=== PATIENT | female | born 1965 | race Hispanic/Latino ===

== ENCOUNTER 2019-08-01 11:36 | Inpatient (IN) | payer OTHER ==
[~2019-08-01] VITALS: Ht 154.9 cm; Wt 95.3 kg
--- OUTSIDE RECORDS SUMMARY | 2019-08-01 11:40 | XMS REPORT ---
Author Author [facility] Address Unknown Phone Unavailable Care Team Providers Care Religious Assistant Name Role Phone Unavailable Unavailable Payers Payer Name Policy Type Policy Number Effective Date Expiration Date Problems This patient has no known problems. Allergies, Adverse Reactions, Alerts Allergy Name Allergy Type Status Severity Reaction(s) Onset Date Inactive Date Treating Clinician Comments morphine DA Active SV 2015-04-03 00:00:00 Medications This patient has no known medications. Results Test Description Test Time Test Comments Text Results Atomic Results Result Comments - MRI LW JNT W/O CONT LT 2018-12-12 09:31:00 FAX: Issac Hill MD [phone] [place]: St: [facility] FAX: Jose Nichols MD [phone] Name: DANYELL CORDON [facility] : 1965 Age/S: 53/F [address] Unit #: [id number] Loc: [place] [address] Phys: Jose Salas MD Acct: [id number] Dis Date: Status: REG CLI PHONE #: [phone] Exam Date: 12/12/2018 0911 FAX #: [phone] Reason: PAIN LT KNEE EXAMS: CPT CODE: [id number] MRI LW JNT W/[place] [address] HISTORY: Pain in the knee. COMPARISON: None available. MRI left knee without contrast: Patellar and quadriceps tendons are intact. The infrapatellar Hoffa's fat, prefemoral fat and the quadriceps fat are without impingement. Mild nonspecific edema in the infrapatellar Hoffa's fat. No bone bruise or acute fracture or osteochondral lesions. ACL and PCL are intact. Lateral meniscus is intact. Flap tear of the posterior horn of the medial meniscus displaced into the superior medial recess with moderate truncation. Mucoid degeneration. MCL and LCL complex are intact without tear popliteus tendon is without tear. Small joint fluid. Medial and the lateral retinaculum are intact. No cartilaginous defect. Popliteal cyst along the medial head of the gastrocnemius muscle measuring 1.7 cm. Additional bursal fluid collection along the insertion of the vastus medialis and oblique this tendon measuring 1.4 cm. IMPRESSION: Large flap tear of the posterior horn of the medial meniscus displaced into the superior medial recess and moderate truncation. Mucoid degeneration. Lateral meniscus is intact. ACL and PCL are intact. LCL and MCL are intact. Small joint fluid. 1.7 cm popliteal cyst and 1.4 cm bursal fluid collection and the insertion of the vastus medialis and lateralis tendon. at 0931 Reported and signed by: George Dan M.D. CC: Issac Beckwith MD; Jose Salas MD Technologist: Maryuri RECIO(R)(MR) Trnscrd Date/Time/By: 12/12/2018 (0931) : By: [email or web address] Orig Print D/T: S: 12/12/2018 (8134) PAGE [address], CHEST WITH IV CONTRAST- PE TEST DESIGN 2017-12-27 20:53:00 Reason for exam:- >SHORTNESS OF BREATHIs the patient ?->NoWhat is the patient's sedation requirement?->No Sedation FINAL REPORT CT, CHEST WITH IV CONTRAST- PE TEST DESIGN INDICATION: "Shortness of breathSHORTNESS OF BREATH" COMPARISON: None TECHNIQUE: Contrast enhanced CT examination of the chest in the pulmonary arterial phase from the bases to the apices. Orthogonal reformatted images as well as coronal maximum intensity projection images were obtained. DOSE REDUCTION: Dose modulation, iterative reconstruction, and/or weight-based adjustment of the mA/kV was utilized to reduce the radiation dose to as low as reasonably achievable. FINDINGS: No pulmonary embolism.No cardiomegaly.No patho logic adenopathy in the chest per CT size criteria. 4 mm left upper lobe pulmonary nodule on axial image 38. 3 mm left lower lobe pulmonary nodule on axial image 74 which is stable compared to a CT in 2009 and therefore benign. 3 mm right lower lobe pulmonary nodule on axial image 93. Visualized portion of the upper abdomen shows no acute abnormality. No acute osseous abnormality. IMPRESSION:No pulmonary embolism.Scattered pulmonary nodules in the lungs as these are above. The Fleischner Society guidelines for followup of an incidentally detected 6 mm or smaller pulmonary nodule are as follows: LOW RISK patient (minimal or absent history of smoking and other known risk factors): No follow up needed. HIGH RISK patient (history of smoking or other risk factors): Follow-up CT in 12 months at the clinician's discretion; if unchanged, no further follow-up. Signed: Sharlene Sheridan MDReport Verified Date/Time: 12/27/2017 20:53:27 Reading Location: [address] Reading Room TINE KINASE (CK), TOTAL AND MB 2017-12-27 16:26:00 CREATINE KINASE TOTAL (BEAKER) (test rahs=370) 37 U/L 29-200 CREATINE KINASE-MB (BEAKER) (test ztgl=121) 1.1 ng/mL 0.0-6.6 CREATINE KINASE-MB INDEX (BEAKER) (test ckjg=771) 3.0 % CK-MB Reference Range:<6.7 Normal6.7-10.0 Borderline>10.0 Abnormal TROPONIN [id number] 16:26:00* Test Item Value Reference Range Comments TROPONIN I (BEAKER) (test impo=201) < ng/mL 0.00-0.03 Troponin I (TnI) levels must be interpreted in the context of the presenting sym ptoms and the clinical findings. Elevated TnI levels indicate myocardial damage, but are not specific for ischemic heart disease. Elevated TnI levels are seen in patients with other cardiac conditions (including myocarditis and congestive h eart failure), and slight TnI elevations occur in patients with other conditions , including sepsis, renal failure, acidosis, acute neurological disease, and per sistent tachyarrhythmia.B-TYPE NATRIURETIC FACTOR (BNP)2017-12-27 15:34:00* Test Item Value Reference Range Comments B-TYPE NATRIURETIC PEPTIDE (BEAKER) (test fpar=898) < pg/mL 0-100 BASIC METABOLIC [id number] 14:21:00* Test Item Value Reference Range Comments SODIUM (BEAKER) (test wwjo=865) 131 meq/L 136-145 POTASSIUM (BEAKER) (test frhn=470) 4.6 meq/L 3.5-5.1 Specimen slightly hemolyzed CHLORIDE (BEAKER) (test jtyj=160) 98 meq/L 98-107 CO2 (BEAKER) (test jqft=668) 21 meq/L 22-29 BLOOD UREA NITROGEN (BEAKER) (test cxbm=047) 14 mg/dL 7-21 CREATININE (BEAKER) (test vpsh=887) 0.85 mg/dL 0.57-1.25 Specimen slightly hemolyzed GLUCOSE RANDOM (BEAKER) (test sxhk=280) 411 mg/dL 70-105 CALCIUM (BEAKER) (test qwwt=865) 9.9 mg/dL 8.4-10.2 EGFR (BEAKER) (test jzas=5663) mL/min/1.73 sq m INSUFFICIENT CLINICAL DATA TO CALCULATE ESTIMATED GFR. [id number] 14:08:00* Test Item Value Reference Range Comments MAGNESIUM (BEAKER) (test wsui=271) 2.1 mg/dL 1.6-2.6 Specimen slightly hemolyzed RAD, CHEST, 2 [id number] 14:08:00Reason for exam:->SHORTNESS OF BREATHFINAL REPORT Chest 2 views 12/27/2017 2:08 PM CLINICAL HISTORY: SHORTNESS OF BREATH COMPARISON: None available FINDINGS: The lungs are clear. Cardiomediastinal contours are within normal limits. The central pulmonary vasculature is not engorged. The visualized skeleton is intact. IMPRESSION: No acute radiographic abnormalities. Signed: Juan Ambrose MDReport Verified Carloz e/Time: 12/27/2017 14:08:16 Reading Location: [facility] [id number] Consult Reading Room /[id number] 13:50:00* Test Item Value Reference Range Comments PROTIME (BEAKER) (test qjij=123) 13.6 seconds 11.7-14.7 INR (BEAKER) (test okog=616) 1.0 <=5.9 PARTIAL THROMBOPLASTIN TIME (BEAKER) (test nnhd=798) 27.5 seconds 22.5-36.0 RECOMMENDED COUMADIN/WARFARIN INR THERAPY RANGESSTANDARD DOSE: 2.0 - 3.0 Inclu daren: PROPHYLAXIS for venous thrombosis, systemic embolization; TREATMENT for scarlett ous thrombosis and/or pulmonary embolus.HIGH RISK: Target INR is 2.5-3.5 for pat ients with mechanical heart valves.CBC W/PLT COUNT & AUTO [id number] 13:38:00* Test Item Value Reference Range Comments WHITE BLOOD CELL COUNT (BEAKER) (test pbzw=908) 6.8 K/ L 3.5-10.5 RED BLOOD CELL COUNT (BEAKER) (test zjtp=252) 5.52 M/ L 3.93-5.22 HEMOGLOBIN (BEAKER) (test rlkf=489) 15.2 GM/DL 11.2-15.7 HEMATOCRIT (BEAKER) (test yipe=223) 47.9 % 34.1-44.9 MEAN CORPUSCULAR VOLUME (BEAKER) (test wnfm=334) 86.8 fL 79.4-94.8 MEAN CORPUSCULAR HEMOGLOBIN (BEAKER) (test lczj=406) 27.5 pg 25.6-32.2 MEAN CORPUSCULAR HEMOGLOBIN CONC (BEAKER) (test nzng=418) 31.7 GM/DL 32.2-35.5 RED CELL DISTRIBUTION WIDTH (BEAKER) (test ajnx=639) 13.2 % 11.7-14.4 PLATELET COUNT (BEAKER) (test bjrd=593) 273 K/CU MM 150-450 MEAN PLATELET VOLUME (BEAKER) (test kuxx=014) 10.3 fL 9.4-12.3 NUCLEATED RED BLOOD CELLS (BEAKER) (test heuj=434) 0 /100 WBC 0-0 NEUTROPHILS RELATIVE PERCENT (BEAKER) (test ouzt=973) 48 % LYMPHOCYTES RELATIVE PERCENT (BEAKER) (test exvj=898) 37 % MONOCYTES RELATIVE PERCENT (BEAKER) (test srzm=122) 8 % EOSINOPHILS RELATIVE PERCENT (BEAKER) (test anbd=908) 5 % BASOPHILS RELATIVE PERCENT (BEAKER) (test gvuf=494) 1 % NEUTROPHILS ABSOLUTE COUNT (BEAKER) (test hdsl=497) 3.31 K/ L 1.56-6.13 LYMPHOCYTES ABSOLUTE COUNT (BEAKER) (test iirc=298) 2.56 K/ L 1.18-3.74 MONOCYTES ABSOLUTE COUNT (BEAKER) (test yfvr=248) 0.52 K/ L 0.24-0.36 EOSINOPHILS ABSOLUTE COUNT (BEAKER) (test iufu=654) 0.37 K/ L 0.04-0.36 BASOPHILS ABSOLUTE COUNT (BEAKER) (test bpww=657) 0.04 K/ L 0.01-0.08 IMMATURE GRANULOCYTES-RELATIVE PERCENT (BEAKER) (test seah=4794) 1 % 0-1
[2019-08-01] MEDS ORDERED: SODIUM CHLORIDE 0.9% 1000ML 1,000 ML IV STA (11:47)
[2019-08-01] MEDS ORDERED: ONDANSETRON HCL INJ 2MG/ML 2ML 2 MG/ML VIAL IV STA (11:47)
[2019-08-01] MEDS ORDERED: KETOROLAC TROMETHAMINE 30 MG/ML VIAL IV STA (11:47)
[2019-08-01] MEDS ORDERED: DIATRIZOATE MEGL/DIATRIZOA SOD 30 ML BTL PO ONE (11:59)
[2019-08-01 12:05] LABS: BASOPHILS # (AUTO) 0.1 (0.0-0.1); BASOPHILS % 0.6 % (0.0-1.0); EOSINOPHILS # (AUTO) 0.4 (0.0-0.4); EOSINOPHILS % 4.8 % (0.0-6.0); HEMATOCRIT 44.9 % (34.2-44.1); HEMOGLOBIN 14.5 g/dL (12.0-16.0); LYMPHOCYTES # (AUTO) 2.8 (1.0-3.2); LYMPHOCYTES % 30.4 % (18.0-39.1); MEAN CORPUSCULAR HGB CONC 32.3 g/dL (31-35); MEAN CORPUSCULAR VOLUME 86.7 fL (81-99); MONOCYTES # (AUTO) 0.7 (0.2-0.8); MONOCYTES % 7.2 % (4.4-11.3); NEUTROPHILS # (AUTO) 5.1 (2.1-6.9); NEUTROPHILS % 56.8 % (38.7-80.0); PLATELET COUNT 250 x10e3/uL (140-360); RED BLOOD COUNT 5.18 x10e6/uL (3.6-5.1); RED CELL DISTRIBUTION WIDTH 13.2 % (11.7-14.4)
[2019-08-01 12:26] LABS: ALANINE AMINOTRANSFERASE 71 IU/L (0-55); ALBUMIN 3.9 g/dL (3.5-5.0); ALBUMIN/GLOBULIN RATIO 1.1 (0.8-2.0); ALKALINE PHOSPHATASE 74 IU/L (40-150); ANION GAP 16.3 mmol/L (8-16); BLOOD UREA NITROGEN 9 mg/dL (7-26); BUN/CREATININE RATIO 12 (6-25); CALCIUM 10.6 mg/dL (8.4-10.2); CARBON DIOXIDE 24 mmol/L (22-29); CHLORIDE 100 mmol/L (98-107); CREATININE, SERUM 0.73 mg/dL (0.57-1.11); EST GLOMERULAR FILTRATION RATE > 60 ML/MIN (60-); GLUCOSE 174 mg/dL (74-118); POTASSIUM 4.3 mmol/L (3.5-5.1); SODIUM 136 mmol/L (136-145)
[2019-08-01 12:32] LABS: BILIRUBIN,URINE NEGATIVE (NEGATIVE); CLARITY,URINE CLEAR (CLEAR); COLOR,URINE YELLOW (YELLOW); KETONES,URINE NEGATIVE (NEGATIVE); LEUKOCYTE ESTERASE ,URINE NEGATIVE (NEGATIVE); NITRITE,URINE NEGATIVE (NEGATIVE); PROTEIN,URINE DIPSTICK NEGATIVE (NEGATIVE); URINE UROBILINOGEN 0.2 mg/dL (0.2 - 1)
[2019-08-01 12:35] LABS: BACTERIA,URINE RARE /HPF; EPITHELIAL CELLS,URINE FEW /LPF; RBC,URINE 0-5 /HPF (0-5); WBC,URINE (MAN) 0-5 /HPF (0-5)
--- NOTE | 2019-08-01 14:26 | Diagnostic Imaging Report ---
EXAM: CT Abdomen and Pelvis WITH intravenous contrast INDICATION: Abdominal pain COMPARISON: None. TECHNIQUE: Abdomen and pelvis were scanned utilizing a multidetector helical scanner from the lung base to the pubic symphysis after administration of IV contrast. Coronal and sagittal reformations were obtained. Routine protocol was performed. Scan was performed during portal venous phase. IV CONTRAST: 100mL of Isovue 370 ORAL CONTRAST: Gastrografin RADIATION DOSE: Total DLP: 738.9 mGy*cm Dose modulation, iterative reconstruction, and/or weight based adjustment of the mA/kV was utilized to reduce the radiation dose to as low as reasonably achievable. FINDINGS: LOWER THORAX: Normal. HEPATOBILIARY: Severe diffuse hepatic steatosis. A 10 mm area of relatively hyperdense parenchyma in the peripheral aspect of segment 8 may represent a small indeterminate lesion versus an area of focal fatty sparing. No other focal liver lesion. No biliary ductal dilation. Status post cholecystectomy. SPLEEN: No splenomegaly. PANCREAS: No focal masses or ductal dilatation. ADRENALS: No adrenal nodules. KIDNEYS/URETERS: No hydronephrosis, stones, or solid mass lesions. PELVIC ORGANS/BLADDER: Status post hysterectomy. PERITONEUM / RETROPERITONEUM: No free air or fluid. LYMPH NODES: No lymphadenopathy. VESSELS: Unremarkable. GI TRACT: There is diverticulosis with a focal area of wall thickening and mild pericolonic fat stranding in the proximal sigmoid colon. No bowel obstruction. Normal appendix. BONES AND SOFT TISSUES: No acute osseous injury. No suspicious lytic or blastic lesions. IMPRESSION: Mild acute proximal sigmoid colon diverticulitis. No free air or associated abscess. Severe diffuse hepatic steatosis. Signed by: Devonte Mancini MD on 08/01/2019 2:22 PM
[2019-08-01] MEDS ORDERED: CIPROFLOXACIN 400 MG/D5W 200ML 200 ML IV SCH (14:45)
[2019-08-01] MEDS ORDERED: ONDANSETRON HCL INJ 2MG/ML 2ML 2 MG/ML VIAL IV PRN (14:45)
[2019-08-01] MEDS ORDERED: MORPHINE SULFATE INJ 4 MG/ML INJ 1ML IV PRN (15:00)
[2019-08-01] MEDS: METRONIDAZOLE 500MG/NS 100ML 100 ML IV SCH ×2 (15:14→17:08)
[2019-08-01] MEDS: SODIUM CHLORIDE 0.9% 1000ML 1,000 ML IV SCH (15:14)
[2019-08-01] MEDS ORDERED: SODIUM CHLORIDE 0.9% 50ML 50 ML ONE (15:52)
[2019-08-01] MEDS ORDERED: IOPAMIDOL 370 MG/ML 200 ML INFUS..BTL INJ ONE (15:52)
[2019-08-01] MEDS ORDERED: GLIPIZIDE5 MG (15:56)
[2019-08-01] MEDS ORDERED: PRAVASTATIN SOD10 MG (15:56)
[2019-08-01] MEDS ORDERED: METFORMIN HCL500 MG (15:56)
[2019-08-01] MEDS ORDERED: LISINOPRIL5 MG (15:56)
[2019-08-01] MEDS ORDERED: DULOXETINE HCL30 MG (15:56)
[2019-08-01] MEDS ORDERED: HUMALOG MI100 UNITS/ SQ (15:56)
[2019-08-01 16:45] VITALS: BP 118/83
[2019-08-01 17:09] VITALS: BP 118/83
--- NOTE | 2019-08-01 19:35 | NUR ---
RECEIVE DPT IN BED AOX3 .RESPIRATIONS ARE EVEN AND UNLABORED .CALL LIGHT WITH IN REACH .CONTINUE TO MONITOR
[2019-08-01 20:00] VITALS: BP 104/70
[2019-08-01 20:43] VITALS: BP 118/83
[2019-08-01] MEDS ORDERED: HYDROCODONE/APAP 5MG-325MG TAB PO PRN (21:15)
[2019-08-01] MEDS ORDERED: ACETAMINOPHEN 325 MG TAB PO PRN (21:15)
[2019-08-01] MEDS ORDERED: DEXTROSE 50% SYRINGE 50 ML IV PRN (23:15)
[2019-08-02] VITALS (7 sets, daily range): BP systolic 115–141; BP diastolic 65–79
[2019-08-02] MEDS: SODIUM CHLORIDE 0.9% 1000ML 1,000 ML IV SCH ×4 (00:24→22:37)
[2019-08-02] MEDS ORDERED: CIPROFLOXACIN 400 MG/D5W 200ML 200 ML IV SCH (03:00)
[2019-08-02] MEDS: METRONIDAZOLE 500MG/NS 100ML 100 ML IV SCH ×3 (06:00→21:19)
[2019-08-02 06:25] LABS: BASOPHILS % 0.6 % (0.0-1.0); EOSINOPHILS # (AUTO) 0.5 (0.0-0.4); EOSINOPHILS % 6.2 % (0.0-6.0); HEMATOCRIT 41.8 % (34.2-44.1); HEMOGLOBIN 12.9 g/dL (12.0-16.0); LYMPHOCYTES # (AUTO) 2.3 (1.0-3.2); LYMPHOCYTES % 31.8 % (18.0-39.1); MEAN CORPUSCULAR HEMOGLOBIN 27.6 pg (28-32); MEAN CORPUSCULAR HGB CONC 30.9 g/dL (31-35); MEAN CORPUSCULAR VOLUME 89.5 fL (81-99); MONOCYTES # (AUTO) 0.6 (0.2-0.8); MONOCYTES % 8.3 % (4.4-11.3); NEUTROPHILS # (AUTO) 3.8 (2.1-6.9); NEUTROPHILS % 52.7 % (38.7-80.0); PLATELET COUNT 214 x10e3/uL (140-360); RED BLOOD COUNT 4.67 x10e6/uL (3.6-5.1); RED CELL DISTRIBUTION WIDTH 13.2 % (11.7-14.4)
--- NOTE | 2019-08-02 06:30 | NUR ---
PT C/O PAIN AND CALLED DR ARTEAGA AND GOT THE ORDER FOR PAIN MEDICATION AND TELE .MEDICATED WITH THE PAIN MEDICATION .CALL LIGHT WITH IN REACH .CONTINUE TO MONITOR
[2019-08-02 06:39] LABS: ANION GAP 11.4 mmol/L (8-16); BLOOD UREA NITROGEN 8 mg/dL (7-26); BUN/CREATININE RATIO 10 (6-25); CALCIUM 9.8 mg/dL (8.4-10.2); CARBON DIOXIDE 27 mmol/L (22-29); CHLORIDE 104 mmol/L (98-107); CREATININE, SERUM 0.78 mg/dL (0.57-1.11); EST GLOMERULAR FILTRATION RATE > 60 ML/MIN (60-); GLUCOSE 173 mg/dL (74-118); POTASSIUM 4.4 mmol/L (3.5-5.1); SODIUM 138 mmol/L (136-145)
--- NOTE | 2019-08-02 07:00 | NUR ---
RECEIVED PATIENT RESTING IN BED NO SIGNS OF DISTRESS. BED LOW, WHEELS LOCKED, SIDE RAILS X2, CALL LIGHT IN REACH WILL CONTINUE TO MONITOR PATIENT.
--- NOTE | 2019-08-02 07:10 | NUR ---
BEDSIDE REPORT GIVEN TO THE ONCOMING NURSE
[2019-08-02] MEDS: INSULIN REGULAR, HUMAN 100 UNIT/1 ML 3ML VIAL SQ SCH ×4 (07:30→21:00)
[2019-08-02] MEDS: LISINOPRIL 2.5 MG TAB PO SCH (08:08)
[2019-08-02] MEDS ORDERED: HYDRALAZINE HCL 20 MG/ML VIAL IV PRN (10:00)
--- NOTE | 2019-08-02 10:00 | NUR ---
PATIENT A/O X3, EVEN RESPIRATIONS ON RA. LUNGS CLEAR TO AUSCULTATION. BOWEL SOUNDS PRESENT, SKIN INTACT, NO EDEMA. RIGHT AC 18 GAUGE WITH NS @ 125 CC/HR. PATIENT AMBULATES INDEPENDENTLY. CALL LIGHT IN REACH WILL CONTINUE TO MONITOR PATIENT.
[2019-08-02] MEDS: DULOXETINE HCL 30 MG DELAYED RELEASE PO SCH (10:07)
[2019-08-02] MEDS ORDERED: LISINOPRIL 2.5 MG TAB PO SCH (10:30)
[2019-08-02] MEDS: CIPROFLOXACIN 500 MG TAB PO SCH (14:06)
--- NOTE | 2019-08-02 14:56 | History and Physical ---
CHIEF COMPLAINT: Abdominal pain, left lower quadrant. HISTORY OF PRESENT ILLNESS: This is a 53-year-old female, morbidly obese, presents to the emergency room with complaints of left lower quadrant abdominal pain. The patient reports again this pain began about 4-5 days ago and decided to go to her primary care physician on yesterday to have this further evaluated. When she saw her primary care doctor, she was told to come to the emergency room for further management and care. CT scan findings here shows sigmoid diverticulitis. The patient reports not having a history of any constipation. She does report having very soft stool output daily. She reports having some nausea, abdominal pain, vomiting, and subjective fever at home. The patient has not seen a GI specialist in the past. The patient is seen and evaluated at bedside on the medical floor. Currently, she is complaining of left lower quadrant pain, but the pain has much improved, rates it 5/10 at this time. REVIEW OF SYSTEMS: Pertinent positives: Left lower quadrant abdominal pain, nausea, vomiting, decrease oral intake. Pertinent negatives: Denies any chest pain, palpitation, dysuria, hematuria, frequency, urgency, lightheadedness, dizziness, cough, congestion, fever, shortness of breath, or any other complaints. The rest of 14-point review of systems have been reviewed with the patient and are negative. ALLERGIES: MORPHINE. HOME MEDICATIONS: 1. Duloxetine 30 mg. 2. Glipizide 5 mg a day. 3. Insulin 75/25, 20 units b.i.d. 4. Lisinopril 5 mg daily. 5. Metformin. 6. Pravastatin. PAST MEDICAL HISTORY: Hyperlipidemia, type 2 diabetes, hypertension, and morbid obesity. PAST SURGICAL HISTORY: Reports none. FAMILY HISTORY: Hypertension and diabetes. SOCIAL HISTORY: No drugs. No alcohol. Does not smoke. Good social support. PHYSICAL EXAMINATION: VITAL SIGNS: Temperature is 97, pulse 72, respiratory rate is 14, blood pressure is 120/73, and pulse ox 97% on room air. GENERAL: Not in acute distress. Alert and oriented x3. Cooperative on examination. HEENT: Head; normocephalic, atraumatic. Eyes; pupils are equal, round, and reactive to light bilaterally. Extraocular movements intact bilaterally. Throat; no evidence of erythema or exudates in the posterior pharynx. Has poor dentition. NECK: Supple. Good range of motion. PULMONARY: Clear to auscultation bilaterally. No wheezing, no rales, no rhonchi, no crackles appreciated. CARDIOVASCULAR: Positive S1 and S2. No murmurs, rubs, or gallops appreciated. ABDOMEN: Soft and nondistended. Tender to palpation in left lower quadrant. Bowel sounds are present. MUSCULOSKELETAL: Strength is 5/5 throughout. No evidence of any muscle deficits on examination. No weakness appreciated. NEUROLOGIC: Cranial nerve II through XII grossly intact. No evidence of any neurological deficits on exam. SKIN: Intact. Warm to touch. Good cap refill. PSYCHIATRIC: Normal affect and mood. EXTREMITIES: No edema. Good range of motion throughout. LABORATORY FINDINGS: Show white count 7.2, hemoglobin 12.9, hematocrit is 41.8, and platelets of 214. Chemistry; sodium is 138, potassium 4.4, chloride 104, bicarb 27, anion gap of 11, BUN is 8, and creatinine is 0.78, glucose is 173, calcium is 9.8. Total bilirubin is 0.7, AST 44, ALT 71, alkaline phosphatase 74, total protein 7.6, albumin 3.9. Urinalysis negative. MICROBIOLOGY: None. IMAGING STUDIES: CT abdomen and pelvis shows mild acute proximal sigmoid colon diverticulitis. No free air or associated abscess. Severe diffuse hepatic steatosis. IMPRESSION: 1. Acute sigmoid diverticulitis. 2. Type 2 diabetes. 3. Hypertension. 4. Hyperlipidemia. 5. Morbid obesity. PLAN: At this time, the patient will be n.p.o. Pain control. IV antibiotics with Cipro and Flagyl. GI has been consulted. Get repeat labs in the morning. Put her on insulin sliding scale, continue with oral glipizide. Get Accu-Cheks to monitor her glucose levels. Resume same antihypertensive medications at home. Put her on p.r.n. hydralazine. We are going to get morning labs. Resume same home medications. Consultants will be GI. Put on Lovenox for DVT prophylaxis. N.p.o. for diet. MD MERA Zhao/SARA /[id number]
[2019-08-02] MEDS: ENOXAPARIN SOD INJ 40 MG/0.4 ML SYR SC SCH (16:24)
[2019-08-02] MEDS: KETOROLAC TROMETHAMINE 30 MG/ML VIAL IV PRN (16:35)
[2019-08-02] MEDS: ONDANSETRON HCL INJ 2MG/ML 2ML 2 MG/ML VIAL IV PRN (16:36)
[2019-08-02] MEDS ORDERED: MELATONIN 5 MG TABLET PO PRN (21:00)
[2019-08-02] MEDS ORDERED: TRAZODONE HCL 50 MG TAB PO PRN (21:00)
[2019-08-02] MEDS: PRAVASTATIN 20 MG TAB PO SCH (21:12)
[2019-08-03] VITALS (8 sets, daily range): BP systolic 101–154; BP diastolic 65–84
--- NOTE | 2019-08-03 00:10 | NUR ---
Patient complain of diarrhea and scant blood in the stool. Dr. Brunson is here. Seen patient. New order received.
[2019-08-03] MEDS ORDERED: LOPERAMIDE HCL 2 MG CAP PO ONE ×2 (00:30→14:30)
[2019-08-03] MEDS: CIPROFLOXACIN 500 MG TAB PO SCH ×2 (02:17→14:20)
[2019-08-03] MEDS: SODIUM CHLORIDE 0.9% 1000ML 1,000 ML IV SCH ×3 (02:24→22:37)
[2019-08-03] MEDS: METRONIDAZOLE 500MG/NS 100ML 100 ML IV SCH ×3 (05:34→21:36)
[2019-08-03 06:36] LABS: BASOPHILS % 0.4 % (0.0-1.0); EOSINOPHILS # (AUTO) 0.4 (0.0-0.4); EOSINOPHILS % 8.3 % (0.0-6.0); HEMATOCRIT 38.6 % (34.2-44.1); HEMOGLOBIN 11.9 g/dL (12.0-16.0); LYMPHOCYTES # (AUTO) 2.3 (1.0-3.2); LYMPHOCYTES % 43.9 % (18.0-39.1); MEAN CORPUSCULAR HEMOGLOBIN 27.8 pg (28-32); MEAN CORPUSCULAR HGB CONC 30.8 g/dL (31-35); MEAN CORPUSCULAR VOLUME 90.2 fL (81-99); MONOCYTES # (AUTO) 0.5 (0.2-0.8); MONOCYTES % 9.1 % (4.4-11.3); NEUTROPHILS % 38.1 % (38.7-80.0); PLATELET COUNT 212 x10e3/uL (140-360); RED BLOOD COUNT 4.28 x10e6/uL (3.6-5.1); RED CELL DISTRIBUTION WIDTH 13.2 % (11.7-14.4)
--- NOTE | 2019-08-03 07:00 | NUR ---
RECEIVED PATIENT RESTING IN BED NO SIGNS OF DISTRESS. BED LOW, WHEELS LOCKED, SIDE RAILS X2, CALL LIGHT IN REACH WILL CONTINUE TO MONITOR PATIENT.
[2019-08-03 07:12] LABS: ANION GAP 9.4 mmol/L (8-16); BLOOD UREA NITROGEN 7 mg/dL (7-26); BUN/CREATININE RATIO 9 (6-25); CALCIUM 9.3 mg/dL (8.4-10.2); CARBON DIOXIDE 27 mmol/L (22-29); CHLORIDE 109 mmol/L (98-107); CREATININE, SERUM 0.75 mg/dL (0.57-1.11); EST GLOMERULAR FILTRATION RATE > 60 ML/MIN (60-); GLUCOSE 137 mg/dL (74-118); POTASSIUM 4.4 mmol/L (3.5-5.1); SODIUM 141 mmol/L (136-145)
[2019-08-03] MEDS: LISINOPRIL 2.5 MG TAB PO SCH (08:01)
[2019-08-03] MEDS: DULOXETINE HCL 30 MG DELAYED RELEASE PO SCH (08:01)
[2019-08-03] MEDS: GLIPIZIDE 5 MG TAB PO SCH (08:01)
[2019-08-03] MEDS: INSULIN REGULAR, HUMAN 100 UNIT/1 ML 3ML VIAL SQ SCH ×4 (08:31→20:43)
[2019-08-03] MEDS ORDERED: NON-FORMULARY MEDICATION (Lisinopril 5 MG) PO SCH (09:00)
--- NOTE | 2019-08-03 15:28 | NUR ---
PATIENT FEELING FATIGUE AND WEAK. VITAL SIGNS AND NEUROS CHECKED. PUPILS EQUAL AND REACTIVE. VS- BLOOD PRESSURE 172/102, HEART RATE 75, SATURATION 99% ON RA. BLOOD SUGAR 121. PAGED DR. ARTEAGA. STAT EKG AND STAT CT OF ABD/PELVIS AND BRAIN ORDERED.
--- NOTE | 2019-08-03 15:32 | NUR ---
PATIENT LEFT FOR CT VIA BED.
[2019-08-03] MEDS: KETOROLAC TROMETHAMINE 30 MG/ML VIAL IV PRN (15:33)
--- NOTE | 2019-08-03 16:00 | NUR ---
PATIENT BACK FROM CT. VS- BLOOD PRESSURE 159/79, O2- 96% RA, HR- 74, RESP-20, TEMP-96.9. PATIENT NAUSEATED, ZOFRAN ADMINISTERED. PATIENT NPO AT THIS TIME. WILL CONTINUE TO MONITOR PATIENT.
[2019-08-03] MEDS: ONDANSETRON HCL INJ 2MG/ML 2ML 2 MG/ML VIAL IV PRN (16:06)
--- NOTE | 2019-08-03 16:25 | Diagnostic Imaging Report ---
Exam: Head CT without contrast History: Fatigue, slurred speech Comparison studies: None. Technique: Axial images were obtained from the skull base to the vertex. Coronal and sagittal images reconstructed from the axial data. Dose modulation, iterative reconstruction, and/or weight based adjustment of the mA/kV was utilized to reduce the radiation dose to as low as reasonably achievable. Radiation dose: Total DLP: 1774 mGy*cm. Estimated effective dose: DLP x 0.015 Intravenous contrast: None Findings: Scalp: No abnormalities. Bones: No fractures, blastic or lytic lesions. Brain sulci: Appropriate for age. Ventricles: Normal in size and configuration. No hydrocephalus. Extra-axial spaces: No masses, no fluid collection. Parenchyma: No abnormal densities. No masses, acute hemorrhage, acute or chronic vascular insults. Sellar/suprasellar region: No abnormalities. Craniocervical junction: Patent foramen magnum. No Chiari one malformation. Included paranasal sinuses: Clear. Hypoplastic right frontal sinus. And middle ear and included mastoids: Clear bilaterally. Incidental findings: Atherosclerotic calcifications in the carotid siphons and intradural vertebral arteries. IMPRESSION: No acute intracranial abnormalities. Signed by: Dr. Jovani Nj M.D. on 08/03/2019 4:21 PM
--- NOTE | 2019-08-03 16:36 | Diagnostic Imaging Report ---
CT abdomen and pelvis with contrast History: Severe abdominal pain Comparison: none Technique: serial axial imaging was performed following up to 100cc of non ionic iodinated intravenous contrast as per departmental protocol. Multiplanar images are reconstructed and reviewed when indicated. This CT examination is performed using one or more of the following dose reduction techniques: Automated exposure control, adjustment of the mA and /or kV according to patient size, and/or use of iterative reconstruction technique. Findings: Unremarkable appearance of pancreas and spleen. Diffuse fatty infiltration of the liver. The liver is otherwise unremarkable. Previous cholecystectomy. Unremarkable appearance of adrenal glands, kidneys, ureters, and urinary bladder. Previous hysterectomy. No adnexal mass is seen.. No small or large bowel obstruction is seen. There is mild diverticulosis of the left colon. There is mild inflammatory change at the junction of the descending and sigmoid colon without extraluminal air or fluid collection. Normal appendix. No free fluid or lymphadenopathy. No abdominal aortic aneurysm. No aggressive osseous lesion. Impression: 1. Acute, uncomplicated diverticulitis at the junction of the descending colon and sigmoid colon. 2. Diffuse fatty infiltration of the liver. 3. Previous cholecystectomy and hysterectomy. Signed by: Kofi Barker MD on 08/03/2019 4:33 PM
[2019-08-03] MEDS: ENOXAPARIN SOD INJ 40 MG/0.4 ML SYR SC SCH (17:13)
[2019-08-03] MEDS ORDERED: PROMETHAZINE 12.5MG/ NACL 0.9% 12.5 MG/50 ML BAG IV PRN (17:15)
[2019-08-03] MEDS ORDERED: PROMETHAZINE 12.5MG/ NACL 0.9% 50 ML IV PRN (17:15)
[2019-08-03] MEDS ORDERED: IOPAMIDOL 370 MG/ML 200 ML INFUS..BTL INJ ONE (19:13)
[2019-08-03] MEDS ORDERED: SODIUM CHLORIDE 0.9% 50ML 50 ML ONE (19:13)
[2019-08-03] MEDS: PRAVASTATIN 20 MG TAB PO SCH (20:43)
[2019-08-04] VITALS (9 sets, daily range): BP systolic 134–167; BP diastolic 79–105
[2019-08-04] MEDS: SODIUM CHLORIDE 0.9% 1000ML 1,000 ML IV SCH ×4 (02:31→14:37)
[2019-08-04] MEDS: CIPROFLOXACIN 500 MG TAB PO SCH ×2 (02:32→15:00)
[2019-08-04] MEDS: METRONIDAZOLE 500MG/NS 100ML 100 ML IV SCH ×3 (05:15→21:50)
[2019-08-04 06:16] LABS: BASOPHILS % 0.7 % (0.0-1.0); EOSINOPHILS # (AUTO) 0.4 (0.0-0.4); EOSINOPHILS % 6.8 % (0.0-6.0); HEMATOCRIT 38.7 % (34.2-44.1); HEMOGLOBIN 12.2 g/dL (12.0-16.0); LYMPHOCYTES # (AUTO) 2.4 (1.0-3.2); LYMPHOCYTES % 39.5 % (18.0-39.1); MEAN CORPUSCULAR HGB CONC 31.5 g/dL (31-35); MEAN CORPUSCULAR VOLUME 88.8 fL (81-99); MONOCYTES # (AUTO) 0.5 (0.2-0.8); MONOCYTES % 7.7 % (4.4-11.3); NEUTROPHILS # (AUTO) 2.7 (2.1-6.9); PLATELET COUNT 210 x10e3/uL (140-360); RED BLOOD COUNT 4.36 x10e6/uL (3.6-5.1); RED CELL DISTRIBUTION WIDTH 12.9 % (11.7-14.4)
[2019-08-04 06:42] LABS: ANION GAP 13.3 mmol/L (8-16); BLOOD UREA NITROGEN 7 mg/dL (7-26); BUN/CREATININE RATIO 9 (6-25); CALCIUM 9.6 mg/dL (8.4-10.2); CARBON DIOXIDE 25 mmol/L (22-29); CHLORIDE 106 mmol/L (98-107); CREATININE, SERUM 0.76 mg/dL (0.57-1.11); EST GLOMERULAR FILTRATION RATE > 60 ML/MIN (60-); GLUCOSE 124 mg/dL (74-118); POTASSIUM 4.3 mmol/L (3.5-5.1); SODIUM 140 mmol/L (136-145)
[2019-08-04] MEDS: INSULIN REGULAR, HUMAN 100 UNIT/1 ML 3ML VIAL SQ SCH ×4 (07:30→21:00)
--- NOTE | 2019-08-04 08:45 | NUR ---
IV TO R AC LEAKING, NEW 20G TO L HAND, PT TOLERATED WELL
[2019-08-04] MEDS: DULOXETINE HCL 30 MG DELAYED RELEASE PO SCH (09:00)
--- NOTE | 2019-08-04 09:32 | NUR ---
PER PT REQUEST FOR DIET, TELEPHONED MD ARTEAGA, ORDERS NOTED
--- NOTE | 2019-08-04 09:36 | NUR ---
PT REFUSING AM MEDICATION UNTIL AFTER HAS "SOMETHING ON HER STOMACH", CLEAR LIQUIDS BROUGHT TO PT PER MD ORDER
[2019-08-04] MEDS: LISINOPRIL 2.5 MG TAB PO SCH (10:06)
[2019-08-04] MEDS: GLIPIZIDE 5 MG TAB PO SCH (10:06)
--- NOTE | 2019-08-04 10:06 | NUR ---
AM MEDICATIONS TAKEN , PT TOLERATING WATER AND JELLO AT THIS TIME, SITTING IN BS CHAIR, CALL LIGHT WITHIN REACH, FAMILY AT SIDE
[2019-08-04 10:41] LABS: EOSINOPHILS % (MANUAL) 12 % (0-7); LYMPHOCYTES % (MANUAL) 36 % (19-48); MONOCYTES % (MANUAL) 4 % (3.4-9.0); NEUTROPHILS % (MANUAL) 48 % (40-74); PLATELET ESTIMATE ADEQUATE; PLATELET MORPHOLOGY COMMENT NORMAL; RBC MORPHOLOGY COMMENT NORMAL
[2019-08-04] MEDS: ONDANSETRON HCL INJ 2MG/ML 2ML 2 MG/ML VIAL IV PRN (14:15)
--- NOTE | 2019-08-04 14:18 | NUR ---
PT NAUSEATED, MEDICATED PER MD ORDER, DR ARTEAGA MADE AWARE, ORDERS NOTED TO KEEP CLEAR LIQUIDS, DON'T ADVANCE DIET AT THIS TIME
--- NOTE | 2019-08-04 16:14 | NUR ---
PT MEDICATED PER MD ORDER WITH PHENERGAN, PT STATES "FOOD ALWAYS FEELS LIKE GETS STUCK IN CHEST" , "EVEN AT HOME", PT EDUCATED TO NOT GET OOB WITHOUT CALLING FOR ASSISTANCE, PT VERBALIZED UNDERSTANDING, CALL LIGHT WITHIN REACH
[2019-08-04] MEDS: ENOXAPARIN SOD INJ 40 MG/0.4 ML SYR SC SCH (17:30)
--- NOTE | 2019-08-04 18:27 | NUR ---
PT DENIES NAUSEA AT THIS TIME, CALL LIGHT WITHIN REACH
[2019-08-04 19:58] LABS: FERRITIN 201.46 ng/mL (4.63-204.00)
[2019-08-04] MEDS: PRAVASTATIN 20 MG TAB PO SCH (21:50)
[2019-08-05] MEDS: SODIUM CHLORIDE 0.9% 1000ML 1,000 ML IV SCH ×4 (00:31→22:44)
[2019-08-05] MEDS: CIPROFLOXACIN 500 MG TAB PO SCH (03:27)
[2019-08-05 04:00] VITALS: BP 175/91
[2019-08-05] MEDS: METRONIDAZOLE 500MG/NS 100ML 100 ML IV SCH ×3 (05:45→21:50)
[2019-08-05 06:31] LABS: % IRON SATURATION 18 % (15-50); IRON 60 ug/dL (50-170); TOTAL IRON BINDING CAPACITY 329 ug/dL (261-478); TRANSFERRIN 235 mg/dL (180-382)
[2019-08-05] MEDS: INSULIN REGULAR, HUMAN 100 UNIT/1 ML 3ML VIAL SQ SCH ×4 (07:30→21:06)
[2019-08-05 08:21] VITALS: BP 135/74
[2019-08-05] MEDS: GLIPIZIDE 5 MG TAB PO SCH (08:30)
--- NOTE | 2019-08-05 08:51 | NUR ---
PT NOT IN THE ROOM, UNABLE TO DO DPA
[2019-08-05] MEDS: DULOXETINE HCL 30 MG DELAYED RELEASE PO SCH (09:00)
[2019-08-05] MEDS: LISINOPRIL 2.5 MG TAB PO SCH (09:35)
--- NOTE | 2019-08-05 09:38 | NUR ---
PT OOB TO BS CHAIR, PT REPORTS FEW LOOSE STOOLS THIS AM, REPORTS TOLERATING BREAKFAST AT THIS TIME, CALL LIGHT WITHIN REACH
[2019-08-05 09:40] VITALS: BP 135/74
--- NOTE | 2019-08-05 10:30 | NUR ---
AMBULATING IN HALLWAY, STEADY GAIT
[2019-08-05 12:39] VITALS: BP 179/91
[2019-08-05] MEDS: CIPROFLOXACIN 400 MG/D5W 200ML 200 ML IV SCH ×2 (15:00→17:11)
[2019-08-05 16:58] VITALS: BP 158/80
[2019-08-05] MEDS: ENOXAPARIN SOD INJ 40 MG/0.4 ML SYR SC SCH (17:16)
[2019-08-05 20:00] VITALS: BP 153/106
[2019-08-05] MEDS: PRAVASTATIN 20 MG TAB PO SCH (21:06)
[2019-08-06] VITALS: BP 155/90
[2019-08-06 04:00] VITALS: BP 133/91
[2019-08-06] MEDS: CIPROFLOXACIN 400 MG/D5W 200ML 200 ML IV SCH (04:11)
[2019-08-06 05:35] LABS: BASOPHILS % 0.5 % (0.0-1.0); EOSINOPHILS # (AUTO) 0.4 (0.0-0.4); EOSINOPHILS % 6.5 % (0.0-6.0); HEMATOCRIT 37.3 % (34.2-44.1); HEMOGLOBIN 11.9 g/dL (12.0-16.0); LYMPHOCYTES # (AUTO) 2.2 (1.0-3.2); LYMPHOCYTES % 35.2 % (18.0-39.1); MEAN CORPUSCULAR HGB CONC 31.9 g/dL (31-35); MEAN CORPUSCULAR VOLUME 87.8 fL (81-99); MONOCYTES # (AUTO) 0.7 (0.2-0.8); MONOCYTES % 10.6 % (4.4-11.3); NEUTROPHILS # (AUTO) 2.9 (2.1-6.9); NEUTROPHILS % 46.7 % (38.7-80.0); PLATELET COUNT 219 x10e3/uL (140-360); RED BLOOD COUNT 4.25 x10e6/uL (3.6-5.1); RED CELL DISTRIBUTION WIDTH 12.8 % (11.7-14.4)
[2019-08-06] MEDS: METRONIDAZOLE 500MG/NS 100ML 100 ML IV SCH ×2 (06:01→12:18)
[2019-08-06 06:06] LABS: ANION GAP 14.3 mmol/L (8-16); BLOOD UREA NITROGEN 5 mg/dL (7-26); BUN/CREATININE RATIO 6 (6-25); CALCIUM 8.8 mg/dL (8.4-10.2); CARBON DIOXIDE 26 mmol/L (22-29); CHLORIDE 104 mmol/L (98-107); CREATININE, SERUM 0.77 mg/dL (0.57-1.11); EST GLOMERULAR FILTRATION RATE > 60 ML/MIN (60-); GLUCOSE 191 mg/dL (74-118); POTASSIUM 4.3 mmol/L (3.5-5.1); SODIUM 140 mmol/L (136-145)
[2019-08-06] MEDS: INSULIN REGULAR, HUMAN 100 UNIT/1 ML 3ML VIAL SQ SCH ×2 (07:30→11:30)
[2019-08-06] MEDS: LISINOPRIL 2.5 MG TAB PO SCH (08:23)
[2019-08-06] MEDS: GLIPIZIDE 5 MG TAB PO SCH (08:23)
[2019-08-06 08:26] VITALS: BP 151/98
[2019-08-06 08:49] VITALS: BP 151/98
[2019-08-06] MEDS: SODIUM CHLORIDE 0.9% 1000ML 1,000 ML IV SCH (10:57)
--- NOTE | 2019-08-06 12:18 | NUR ---
BP 188/103 PRN hydralizine given.
[2019-08-06 12:34] VITALS: BP 188/103
[2019-08-06] MEDS ORDERED: FLAGYL250 MG PO (13:04)
[2019-08-06] MEDS ORDERED: CIPRO500 MG PO (13:04)
[2019-08-06 13:10] VITALS: BP 141/95
--- NOTE | 2019-08-06 13:10 | NUR ---
BP 141/95
--- NOTE | 2019-08-06 13:32 | NUR ---
Left hand IV discontinued. No signs of infiltration noted. 2x2 gauze and tape placed. Taken to personal car by PCT. Refuses wheelchair. AAOX4 to time, person, place, situation. Respirations even and unlabored. Denies pain. Discharge instructions, rx, and all personal belongings taken with patient.
--- NOTE | 2019-08-06 13:39 | Discharge Summary ---
FINAL DISCHARGE DIAGNOSES: 1. Acute diverticulitis-improved. 2. Abdominal pain, nausea, and vomiting secondary to #1, resolved. 3. Hyperlipidemia. 4. Hypertension. 5. Type 2 diabetes. 6. Morbid obesity. CONVENTIONS ASSISTANT: GI. PHYSICAL EXAMINATION: VITAL SIGNS: Temperature is 98, pulse 77, respiratory rate is 18, blood pressure 151/98, and pulse ox is 96% on room air. LABORATORY FINDINGS: Show white count 6.3, hemoglobin 11.9, hematocrit is 37.3, and platelets of 219. Chemistry; sodium 140, potassium 4.3, chloride 104, bicarb 26, anion gap of 14, BUN is 5, creatinine is 0.77, and glucose is 191. Calcium is 8.8. Iron saturation is 18%. Total bilirubin is 0.7, AST is 44, and ALT 71. Albumin was 3.9. Vitamin B12 was 1191. Urinalysis was negative. Clostridium difficile toxin was negative. MICROBIOLOGY: Stool cultures were negative. IMAGING STUDIES: CT abdomen and pelvis shows mild acute proximal sigmoid colon diverticulitis. No free air or associated abscess. Repeat CT abdomen and pelvis with IV contrast shows acute uncomplicated diverticulitis at the junction of the descending colon and sigmoid colon. Diffuse fatty infiltration of the liver. Prior cholecystectomy and hysterectomy. CT brain found to be negative. HOSPITAL COURSE: A 53-year-old female, morbidly obese, came in with complaints of abdominal pain, nausea, and vomiting with complaints of abdominal pain in the left lower quadrant. CT imaging consistent with acute diverticulitis. GI was consulted. The patient maintained on broad-spectrum IV antibiotics with IV Cipro and Flagyl. The patient was on pain control. Started on clear liquid diet, advanced to regular, which she tolerated well. She had a CT of brain which was found to be negative. Repeat CT abdomen and pelvis still showed evidence of acute diverticulitis. The patient had a repeat CT abdomen and pelvis due to the patient complaining of worsening pain and wanted to evaluate this further. Findings were similar to the initial findings on admission. No further workup needed by GI. GI recommends colonoscopy in 4 weeks' time upon discharge. She will be discharged on oral Cipro and Flagyl for 10 more days. On the day of discharge, vital signs were stable, labs reviewed and stable. The patient is seen and evaluated, examined thoroughly on the day of discharge. No other complaints. The patient verbalized understanding and agrees to plan of care. A followup appointment as an outpatient with primary care physician in 1 week and GI specialist in 3 to 4 weeks' time. MEDICATIONS: See med reconciliation form. DISPOSITION: To home. CONDITION: Stable. DIET: Heart healthy. In the event of any worsening symptoms, the patient was advised to come back to the ED for further evaluation. Discharge summary took greater than 35 minutes. Please follow up with a GI specialist in 3 to 4 weeks as scheduled. MD MERA Zhao/MODL /[id number]
== END 2019-08-06 13:30 | disposition home or self-care (01) | DRG 392 ==
LOC: ER 11:36 → ERHOLD 14:37 → MED/SURG 16:07
PROVIDERS: ADMIT Internal Medicine; ATTEND Internal Medicine
DX: K57.32 Diverticulitis of large intestine without perforation or abscess without bleeding (principal); E78.5 Hyperlipidemia, unspecified; E11.9 Type 2 diabetes mellitus without complications; E66.01 Morbid (severe) obesity due to excess calories; Z68.39 Body mass index [BMI] 39.0-39.9, adult; K76.0 Fatty (change of) liver, not elsewhere classified; D64.9 Anemia, unspecified; Z79.4 Long term (current) use of insulin
CPT/HCPCS: 36415; 70450; 74177; 80048; 80053; 81001; 82607; 82728; 82948; 83540; 84466; 85025; 85045; 87045; 87493; 93005; 96372; 99284; J0360; J1650; J1817; J1885; J2405; J2550; J7030; Q9967

== ENCOUNTER 2022-07-22 12:45 | Emergency (ER) | payer OTHER ==
[~2022-07-22] VITALS: Ht 154.9 cm; Wt 95.3 kg
[~2022-07-22 12:45] MED LIST: CIPRO500 MG PO; DULOXETINE HCL30 MG; FLAGYL250 MG PO; GLIPIZIDE5 MG; HUMALOG MI100 UNITS/ SQ; LISINOPRIL5 MG; METFORMIN HCL500 MG; PRAVASTATIN SOD10 MG
[2022-07-22] MEDS ORDERED: KETOROLAC TROMETHAMINE 30 MG/ML VIAL IV STA (12:59)
[2022-07-22] MEDS ORDERED: DEXAMETHASONE SOD PHOS 10 MG/1 ML VIAL IV ONE (13:00)
[2022-07-22 14:07] LABS: BASOPHILS % 0.5 % (0.0-1.0); EOSINOPHILS # (AUTO) 0.4 (0.0-0.4); EOSINOPHILS % 6.5 % (0.0-6.0); HEMATOCRIT 42.6 % (34.2-44.1); HEMOGLOBIN 13.1 g/dL (12.0-16.0); LYMPHOCYTES # (AUTO) 2.2 (1.0-3.2); LYMPHOCYTES % 38.2 % (18.0-39.1); MEAN CORPUSCULAR HEMOGLOBIN 27.8 pg (28-32); MEAN CORPUSCULAR HGB CONC 30.8 g/dL (31-35); MEAN CORPUSCULAR VOLUME 90.4 fL (81-99); MONOCYTES # (AUTO) 0.4 (0.2-0.8); MONOCYTES % 6.4 % (4.4-11.3); NEUTROPHILS # (AUTO) 2.8 (2.1-6.9); NEUTROPHILS % 48.2 % (38.7-80.0); PLATELET COUNT 201 x10e3/uL (140-360); RED BLOOD COUNT 4.71 x10e6/uL (3.6-5.1); RED CELL DISTRIBUTION WIDTH 13.6 % (11.7-14.4)
[2022-07-22 14:08] LABS: ALBUMIN 3.8 g/dL (3.5-5.0); ALBUMIN/GLOBULIN RATIO 1.1 (0.8-2.0); ANION GAP 15.5 mmol/L (8-16); CREATININE, SERUM 0.79 mg/dL (0.57-1.11); POTASSIUM 4.5 mmol/L (3.5-5.1)
[2022-07-22] MEDS ORDERED: MELOXICAM15 MG PO (14:52)
[2022-07-22] MEDS ORDERED: PROAIR HFA INH8.5 GM PO (14:52)
[2022-07-22] MEDS ORDERED: PREDNISONE50 MG PO (14:52)
== END 2022-07-22 15:14 | disposition home or self-care (01) ==
LOC: ER 12:52
DX: R09.1 Pleurisy (principal); M06.9 Rheumatoid arthritis, unspecified; E11.65 Type 2 diabetes mellitus with hyperglycemia; I10 Essential (primary) hypertension; K21.9 Gastro-esophageal reflux disease without esophagitis; F41.9 Anxiety disorder, unspecified; H40.9 Unspecified glaucoma; R94.31 Abnormal electrocardiogram [ECG] [EKG]
CPT/HCPCS: 36415; 71045; 80053; 83880; 84484; 85025; 85379; 93005; 99284; J1100; J1885

== ENCOUNTER → 2022-08-03 | Outpatient (CLI) | payer OTHER ==
[~2022-08-03] MED LIST changes: +MELOXICAM15 MG PO; +PREDNISONE50 MG PO; +PROAIR HFA INH8.5 GM PO
== END ==
LOC: US 08:16
PROVIDERS: ATTEND Internal Medicine Endocrinology, Diabetes & Metabolism
DX: R74.01 Elevation of levels of liver transaminase levels (principal)
CPT/HCPCS: 76700

== ENCOUNTER → 2023-01-19 | Outpatient (CLI) | payer OTHER | LOC: US 07:47 | PROVIDERS: ATTEND Internal Medicine Endocrinology, Diabetes & Metabolism | DX: R22.2 Localized swelling, mass and lump, trunk (principal) | CPT/HCPCS: 76882 ==

== ENCOUNTER → 2023-02-22 | Outpatient (CLI) | payer OTHER ==
[~2023-02-22] MED LIST changes: +IOPAMIDOL 370 MG/ML 100 ML INFUS..BTL INJ ONE
[2023-02-22 08:44] LABS: CREATININE, SERUM 0.71 mg/dL (0.57-1.11)
== END ==
LOC: CT 07:37
PROVIDERS: ATTEND Internal Medicine Endocrinology, Diabetes & Metabolism
DX: Z12.31 Encounter for screening mammogram for malignant neoplasm of breast (principal); I89.0 Lymphedema, not elsewhere classified; R22.43 Localized swelling, mass and lump, lower limb, bilateral
CPT/HCPCS: 36415; 73201; 77067; 82565; 84520; Q9967

== ENCOUNTER → 2023-03-18 | Outpatient (CLI) | payer OTHER ==
[~2023-03-18] MED LIST changes: -IOPAMIDOL 370 MG/ML 100 ML INFUS..BTL INJ ONE
== END ==
LOC: MAMMO 08:30
PROVIDERS: ATTEND Internal Medicine Endocrinology, Diabetes & Metabolism
DX: R92.8 Other abnormal and inconclusive findings on diagnostic imaging of breast (principal); N60.22 Fibroadenosis of left breast

== ENCOUNTER 2025-01-28 20:11 | Observation (INO) | payer SELFPAY ==
[~2025-01-28] VITALS: Ht 154.9 cm; Wt 82.1 kg
[~2025-01-28 20:11] MED LIST changes: -METFORMIN HCL500 MG; +METFORMIN HCL500 MG PO; -PRAVASTATIN SOD10 MG; +PRAVASTATIN SOD10 MG PO
[2025-01-28 20:18] VITALS: TEMP 98.5
[2025-01-28 21:00] LABS: BASOPHILS % 0.6 % (0.0-1.0); EOSINOPHILS # (AUTO) 0.5 (0.0-0.4); EOSINOPHILS % 6.4 % (0.0-6.0); HEMATOCRIT 39.5 % (34.2-44.1); LYMPHOCYTES # (AUTO) 2.9 (1.0-3.2); LYMPHOCYTES % 40.7 % (18.0-39.1); MEAN CORPUSCULAR HGB CONC 32.9 g/dL (31-35); MEAN CORPUSCULAR VOLUME 85.1 fL (81-99); MONOCYTES # (AUTO) 0.5 (0.2-0.8); MONOCYTES % 7.4 % (4.4-11.3); NEUTROPHILS # (AUTO) 3.2 (2.1-6.9); NEUTROPHILS % 44.6 % (38.7-80.0); PLATELET COUNT 229 x10e3/uL (140-360); RED BLOOD COUNT 4.64 x10e6/uL (3.6-5.1); RED CELL DISTRIBUTION WIDTH 13.3 % (11.7-14.4); WHITE BLOOD COUNT 7.06 x10e3/uL (4.8-10.8)
[2025-01-28 21:13] LABS: INR 0.87; PROTHROMBIN TIME 12.4 seconds (11.9-14.5)
[2025-01-28 21:20] LABS: ALBUMIN 3.8 g/dL (3.5-5.0); ALBUMIN/GLOBULIN RATIO 1.2 (0.8-2.0); BILIRUBIN,TOTAL 0.2 mg/dL (0.2-1.2); CALCIUM 9.2 mg/dL (8.4-10.2); CREATININE, SERUM 1.09 mg/dL (0.57-1.11); TOTAL PROTEIN 7.1 g/dL (6.5-8.1)
[2025-01-28] MEDS ORDERED: SODIUM CHLORIDE FLUSH 10 ML SYR INJ PRN (22:00)
[2025-01-28] MEDS ORDERED: ONDANSETRON HCL INJ 2MG/ML 2ML 2 MG/ML VIAL IV PRN (22:00)
[2025-01-28] MEDS ORDERED: DEXTROSE 50% SYRINGE 50 ML IV PRN (22:00)
[2025-01-28 22:30] VITALS: PULSE 85; RESP 15; RESP 16; O2SAT 98
[2025-01-28] MEDS: ASPIRIN 81 MG CHEW TAB PO ONE (22:54)
[2025-01-28 23:31] VITALS: BP 130/72; PULSE 79; RESP 18; TEMP 98.3; O2SAT 98
[2025-01-28 23:44] VITALS: BP 130/72; PULSE 79; RESP 18; TEMP 98.3; O2SAT 98
[2025-01-29] VITALS (10 sets, daily range): BP systolic 116–146; BP diastolic 71–86; PULSE 70–86; RESP 16–20; TEMP 97.7–98.5; O2SAT 98–100
[2025-01-29] MEDS ORDERED: HUMALOG KW200 UNIT/1 SC (00:12)
[2025-01-29] MEDS ORDERED: BASAGLAR K100 UNIT/1 SC (00:12)
[2025-01-29] MEDS ORDERED: LOSARTAN POTASS25 MG PO (00:12)
[2025-01-29] MEDS ORDERED: DULOXETINE HCL20 MG PO (00:15)
[2025-01-29] MEDS ORDERED: vitamin d3 PO (00:15)
[2025-01-29 01:38] LABS: CLARITY,URINE SL CLOUDY (CLEAR); COLOR,URINE YELLOW (YELLOW)
[2025-01-29 01:39] LABS: BILIRUBIN,URINE NEGATIVE (NEGATIVE); GLUCOSE, URINE 500 (NEGATIVE); KETONES,URINE TRACE (NEGATIVE); LEUKOCYTE ESTERASE ,URINE NEGATIVE (NEGATIVE); NITRITE,URINE NEGATIVE (NEGATIVE); PH,URINE 6 (5 - 7); PROTEIN,URINE DIPSTICK NEGATIVE (NEGATIVE); URINE UROBILINOGEN 0.2 mg/dL (0.2 - 1)
[2025-01-29 01:49] LABS: BACTERIA,URINE MODERATE /HPF; RBC,URINE 0-5 /HPF (0-5); WBC,URINE (MAN) 0-5 /HPF (0-5)
[2025-01-29 01:50] LABS: EPITHELIAL CELLS,URINE MODERATE /LPF; YEAST,URINE MODERATE
[2025-01-29 05:44] LABS: BASOPHILS # (AUTO) 0.1 (0.0-0.1); BASOPHILS % 0.7 % (0.0-1.0); EOSINOPHILS # (AUTO) 0.5 (0.0-0.4); EOSINOPHILS % 6.7 % (0.0-6.0); HEMOGLOBIN 11.9 g/dL (12.0-16.0); LYMPHOCYTES # (AUTO) 3.4 (1.0-3.2); LYMPHOCYTES % 49.9 % (18.0-39.1); MEAN CORPUSCULAR HEMOGLOBIN 27.5 pg (28-32); MEAN CORPUSCULAR HGB CONC 32.2 g/dL (31-35); MEAN CORPUSCULAR VOLUME 85.5 fL (81-99); MONOCYTES # (AUTO) 0.6 (0.2-0.8); MONOCYTES % 8.8 % (4.4-11.3); NEUTROPHILS # (AUTO) 2.3 (2.1-6.9); NEUTROPHILS % 33.8 % (38.7-80.0); PLATELET COUNT 197 x10e3/uL (140-360); RED BLOOD COUNT 4.33 x10e6/uL (3.6-5.1); RED CELL DISTRIBUTION WIDTH 13.4 % (11.7-14.4); WHITE BLOOD COUNT 6.71 x10e3/uL (4.8-10.8)
[2025-01-29 06:18] LABS: ALBUMIN 3.4 g/dL (3.5-5.0); ALBUMIN/GLOBULIN RATIO 1.2 (0.8-2.0); BILIRUBIN,TOTAL 0.3 mg/dL (0.2-1.2); CALCIUM 8.5 mg/dL (8.4-10.2); CREATININE, SERUM 0.81 mg/dL (0.57-1.11); TOTAL PROTEIN 6.3 g/dL (6.5-8.1)
[2025-01-29 07:03] LABS: TROPONIN I 0.005 ng/mL (0-0.300)
[2025-01-29] MEDS: INSULIN REGULAR, HUMAN 100 UNIT/1 ML SQ SCH (09:06)
[2025-01-29 14:49] LABS: TROPONIN I 0.003 ng/mL (0-0.300)
[2025-01-29] MEDS: LOSARTAN POTASSIUM 25 MG TAB PO SCH (17:36)
[2025-01-29] MEDS: METFORMIN HCL 500 MG TAB PO SCH (17:36)
[2025-01-29] MEDS ORDERED: FAMOTIDINE 20 MG/2 ML VIAL IV ONE (19:03)
[2025-01-29] MEDS ORDERED: IBUPROFEN 400 MG TAB PO PRN (19:30)
[2025-01-29] MEDS: DIPHENHYDRAMINE HCL INJ 50 MG/ML VIAL IV ONE (20:09)
[2025-01-29] MEDS: ONDANSETRON HCL INJ 2MG/ML 2ML 2 MG/ML VIAL IV ONE (20:10)
[2025-01-29] MEDS: FAMOTIDINE 20 MG/2 ML VIAL IV ONE (20:10)
[2025-01-29] MEDS: METHYLPREDNISOLONE SOD SUCC 125 MG/2ML VIAL IV SCH (21:55)
[2025-01-29] MEDS: PRAVASTATIN 20 MG TAB PO SCH (21:55)
[2025-01-30 03:41] VITALS: BP 110/81; PULSE 80; RESP 20; TEMP 97.8; O2SAT 100
[2025-01-30 04:43] LABS: BASOPHILS % 0.2 % (0.0-1.0); EOSINOPHILS % 0.1 % (0.0-6.0); HEMATOCRIT 42.6 % (34.2-44.1); HEMOGLOBIN 14.2 g/dL (12.0-16.0); LYMPHOCYTES # (AUTO) 1.2 (1.0-3.2); LYMPHOCYTES % 14.5 % (18.0-39.1); MEAN CORPUSCULAR HEMOGLOBIN 28.1 pg (28-32); MEAN CORPUSCULAR HGB CONC 33.3 g/dL (31-35); MEAN CORPUSCULAR VOLUME 84.2 fL (81-99); MONOCYTES # (AUTO) 0.1 (0.2-0.8); MONOCYTES % 0.7 % (4.4-11.3); NEUTROPHILS # (AUTO) 7.1 (2.1-6.9); NEUTROPHILS % 83.7 % (38.7-80.0); PLATELET COUNT 228 x10e3/uL (140-360); RED BLOOD COUNT 5.06 x10e6/uL (3.6-5.1); RED CELL DISTRIBUTION WIDTH 13.2 % (11.7-14.4); WHITE BLOOD COUNT 8.44 x10e3/uL (4.8-10.8)
[2025-01-30 05:00] LABS: ALANINE AMINOTRANSFERASE 39 IU/L (0-55); ALBUMIN 3.7 g/dL (3.5-5.0); ALBUMIN/GLOBULIN RATIO 1.1 (0.8-2.0); ALKALINE PHOSPHATASE 50 IU/L (40-150); ANION GAP 16.5 mmol/L (8-16); BILIRUBIN,TOTAL 0.5 mg/dL (0.2-1.2); BLOOD UREA NITROGEN 17 mg/dL (7-26); BUN/CREATININE RATIO 20 (6-25); CALCIUM 9.4 mg/dL (8.4-10.2); CARBON DIOXIDE 20 mmol/L (22-29); CHLORIDE 101 mmol/L (98-107); CREATINE KINASE 137 IU/L (29-168); CREATININE, SERUM 0.84 mg/dL (0.57-1.11); EST GLOMERULAR FILTRATION RATE 79 ML/MIN (>=60); GLUCOSE 340 mg/dL (74-118); POTASSIUM 4.5 mmol/L (3.5-5.1); SODIUM 133 mmol/L (136-145); TOTAL PROTEIN 7.1 g/dL (6.5-8.1)
[2025-01-30 05:06] LABS: TROPONIN I < 0.001 ng/mL (0-0.300)
[2025-01-30] MEDS ORDERED: IOPAMIDOL 370 MG/ML 100 ML INFUS..BTL INJ ONE (05:19)
[2025-01-30 07:32] VITALS: BP 111/83; PULSE 95; RESP 18; TEMP 98.3; O2SAT 98
[2025-01-30] MEDS: DULOXETINE HCL 20 MG DELAYED RELEASE PO SCH (09:33)
[2025-01-30 09:38] VITALS: PULSE 107; RESP 18; O2SAT 98
[2025-01-30] MEDS ORDERED: METFORMIN HCL500 MG PO (12:08)
[2025-01-30] MEDS ORDERED: JANUVIA100 MG PO (12:08)
[2025-01-30 13:02] VITALS: BP 111/83; PULSE 107; RESP 18; TEMP 98.3; O2SAT 98
== END 2025-01-30 14:15 | disposition home or self-care (01) ==
LOC: ER 20:16 → ERHOLD 22:02 → MED/SURG3 23:28
PROVIDERS: ADMIT Internal Medicine; ATTEND Internal Medicine
DX: R55 Syncope and collapse (principal); I10 Essential (primary) hypertension; E11.9 Type 2 diabetes mellitus without complications; Z79.84 Long term (current) use of oral hypoglycemic drugs; R06.02 Shortness of breath; T50.8X5A Adverse effect of diagnostic agents, initial encounter; Y92.238 Other place in hospital as the place of occurrence of the external cause; R07.9 Chest pain, unspecified; E78.00 Pure hypercholesterolemia, unspecified; F41.8 Other specified anxiety disorders
CPT/HCPCS: 36415 ×2; 70450; 70496; 70498; 70551; 71045 ×2; 72125; 73030; 80053 ×3; 81001; 82550 ×2; 82948 ×3; 83690; 83880; 84484 ×3; 85025 ×3; 85610; 85730; 93005; 93880; 94799 ×3; 96372; 99252; 99284; G0378 ×3; J2405; J2919 ×2; Q9967; J1308

== ENCOUNTER 2025-04-15 16:54 | Inpatient (IN) | payer OTHER ==
[~2025-04-15] VITALS: Ht 154.9 cm; Wt 81.6 kg
[~2025-04-15 16:54] MED LIST changes: +BASAGLAR K100 UNIT/1 SC; +DULOXETINE HCL20 MG PO; +HUMALOG KW200 UNIT/1 SC; +JANUVIA100 MG PO; +LOSARTAN POTASS25 MG PO; +vitamin d3 PO
[2025-04-15 17:00] VITALS: RESP 22
[2025-04-15 17:31] LABS: BASOPHILS % 0.5 % (0.0-1.0); EOSINOPHILS % 5.4 % (0.0-6.0); LYMPHOCYTES % 17.3 % (18.0-39.1); MONOCYTES % 7.6 % (4.4-11.3); NEUTROPHILS % 68.7 % (38.7-80.0); RED CELL DISTRIBUTION WIDTH 13.2 % (11.7-14.4)
[2025-04-15] MEDS: KETOROLAC TROMETHAMINE 30 MG/ML VIAL IV STA (17:47)
[2025-04-15] MEDS: ACETAMINOPHEN 325 MG TAB PO ONE (17:47)
[2025-04-15] MEDS: SODIUM CHLORIDE 0.9% 1000ML 2,100 ML IV SCH (17:47)
[2025-04-15 17:48] LABS: INR 0.93
[2025-04-15 17:56] LABS: EST GLOMERULAR FILTRATION RATE 95.0 ML/MIN (>=60)
[2025-04-15] MEDS ORDERED: IOPAMIDOL 370 MG/ML 100 ML INFUS..BTL INJ ONE (18:29)
[2025-04-15] MEDS ORDERED: SODIUM CHLORIDE 0.9% 0 ML ONE (18:29)
[2025-04-15 18:45] LABS: LEUKOCYTE ESTERASE ,URINE NEGATIVE (NEGATIVE); PROTEIN,URINE DIPSTICK NEGATIVE (NEGATIVE); URINE UROBILINOGEN 0.2 mg/dL (0.2 - 1)
[2025-04-15 18:47] LABS: EPITHELIAL CELLS,URINE RARE /LPF; WBC,URINE (MAN) 0-5 /HPF (0-5)
[2025-04-15] MEDS ORDERED: SODIUM CHLORIDE FLUSH 10 ML SYR INJ PRN (19:15)
[2025-04-15 19:45] VITALS: PULSE 93; TEMP 98.3
[2025-04-15] MEDS ORDERED: MECLIZINE HCL 12.5 MG TAB PO PRN (20:00)
[2025-04-15] MEDS: MECLIZINE HCL 12.5 MG TAB PO PRN (20:43)
[2025-04-15] MEDS ORDERED: Azithromycin IV 500 MG 10 ML VIAL ONE (21:40)
[2025-04-15] MEDS ORDERED: SODIUM CHLORIDE 0.9% 250ML 250 ML ONE (21:41)
[2025-04-15 21:58] VITALS: BP 147/96; PULSE 93; TEMP 98.3; O2SAT 98
[2025-04-15 22:13] VITALS: BP 147/96; PULSE 93; TEMP 98.3; O2SAT 98
[2025-04-16] VITALS (8 sets, daily range): BP systolic 134–159; BP diastolic 78–98; PULSE 91–102; RESP 18–19; TEMP 98.2–102.9; O2SAT 92–100
[2025-04-16] MEDS: ACETAMINOPHEN 325 MG TAB PO PRN (00:50)
[2025-04-16 05:39] LABS: BASOPHILS % 0.4 % (0.0-1.0); EOSINOPHILS % 2.8 % (0.0-6.0); LYMPHOCYTES % 26.1 % (18.0-39.1); MONOCYTES % 8.2 % (4.4-11.3); NEUTROPHILS % 61.8 % (38.7-80.0); RED CELL DISTRIBUTION WIDTH 13.3 % (11.7-14.4)
[2025-04-16 06:17] LABS: EST GLOMERULAR FILTRATION RATE 98.0 ML/MIN (>=60)
[2025-04-16] MEDS ORDERED: DEXTROSE 50% SYRINGE 50 ML IV PRN (16:30)
[2025-04-16] MEDS: LOSARTAN POTASSIUM 25 MG TAB PO SCH (17:23)
[2025-04-16] MEDS: METFORMIN HCL 500 MG TAB PO SCH (17:23)
[2025-04-16] MEDS: INSULIN REGULAR, HUMAN 100 UNIT/1 ML SQ SCH (17:30)
[2025-04-17] VITALS (9 sets, daily range): BP systolic 121–150; BP diastolic 77–87; PULSE 87–98; RESP 17–20; TEMP 98.6–101.8; O2SAT 94–100
[2025-04-17 05:31] LABS: BASOPHILS % 0.5 % (0.0-1.0); EOSINOPHILS % 2.4 % (0.0-6.0); LYMPHOCYTES % 28.7 % (18.0-39.1); MONOCYTES % 11.7 % (4.4-11.3); NEUTROPHILS % 56.3 % (38.7-80.0); RED CELL DISTRIBUTION WIDTH 13.5 % (11.7-14.4)
[2025-04-17 06:10] LABS: EST GLOMERULAR FILTRATION RATE 97.0 ML/MIN (>=60)
[2025-04-17] MEDS: PANTOPRAZOLE SOD 40 MG TABEC PO SCH (09:18)
[2025-04-17] MEDS: DULOXETINE HCL 20 MG DELAYED RELEASE PO SCH (09:18)
[2025-04-17] MEDS: Doxycycline IV 100 MG in SODIUM CHLORIDE 0.9% 100 ML IV SCH (15:12)
[2025-04-17 18:24] LABS: CORONAVIRUS COVID-19 AG NEGATIVE (NEGATIVE)
[2025-04-18] VITALS: BP 141/88; PULSE 93; RESP 20; TEMP 99.7; O2SAT 99
[2025-04-18 04:00] VITALS: BP 133/82; PULSE 84; RESP 20; TEMP 98; O2SAT 100
[2025-04-18 05:11] LABS: BASOPHILS % 0.6 % (0.0-1.0); EOSINOPHILS % 10.7 % (0.0-6.0); LYMPHOCYTES % 36.5 % (18.0-39.1); MONOCYTES % 13.6 % (4.4-11.3); NEUTROPHILS % 38.3 % (38.7-80.0); RED CELL DISTRIBUTION WIDTH 13.3 % (11.7-14.4)
[2025-04-18 05:36] LABS: EST GLOMERULAR FILTRATION RATE 99.0 ML/MIN (>=60)
[2025-04-18 07:48] VITALS: BP 118/82; PULSE 80; RESP 18; TEMP 98; O2SAT 97
[2025-04-18 08:44] VITALS: PULSE 80; RESP 18; O2SAT 97
[2025-04-18 12:08] VITALS: BP 122/87; PULSE 89; RESP 18; TEMP 98.7; O2SAT 99
[2025-04-18] MEDS ORDERED: MECLIZINE HCL12.5 MG PO (13:09)
[2025-04-18] MEDS ORDERED: DOXYCYCLINE HY100 MG PO (13:09)
== END 2025-04-18 14:15 | disposition home or self-care (01) | DRG 871 ==
LOC: ER 17:09 → ERHOLD 19:02 → MED/SURG 20:55
PROVIDERS: ADMIT Internal Medicine; ATTEND Internal Medicine
PROC: 3E0333Z Introduction of Anti-inflammatory into Peripheral Vein, Percutaneous Approach (ICD-10-PCS; principal; 2025-04-15)
DX: A41.9 Sepsis, unspecified organism (principal); J18.9 Pneumonia, unspecified organism; E87.20 Acidosis, unspecified; I10 Essential (primary) hypertension; E11.65 Type 2 diabetes mellitus with hyperglycemia; E78.5 Hyperlipidemia, unspecified; F41.9 Anxiety disorder, unspecified; F32.A Depression, unspecified; Z11.52 Encounter for screening for COVID-19; Z79.4 Long term (current) use of insulin; Z79.84 Long term (current) use of oral hypoglycemic drugs; Z90.49 Acquired absence of other specified parts of digestive tract; Z90.710 Acquired absence of both cervix and uterus; Z91.041 Radiographic dye allergy status; Z88.5 Allergy status to narcotic agent
CPT/HCPCS: 36415; 71046; 71250; 80048; 80053; 81001; 82948; 83036; 83605; 84443; 85025; 85379; 85610; 85730; 87040; 87086; 93005; 94799; 99284; J0696; J1885; J2470; J7050; Q9967

== ENCOUNTER 2025-06-06 14:36 | Emergency (ER) | payer OTHER ==
[~2025-06-06] VITALS: Ht 154.9 cm; Wt 81.6 kg
[~2025-06-06 14:36] MED LIST changes: +DOXYCYCLINE HY100 MG PO; +MECLIZINE HCL12.5 MG PO
[2025-06-06 19:40] VITALS: PULSE 82; RESP 20; TEMP 98.2; O2SAT 100
== END 2025-06-06 19:47 | disposition home or self-care (01) ==
LOC: ER 18:11
DX: J06.9 Acute upper respiratory infection, unspecified (principal)
CPT/HCPCS: 71046; 99283